=== PATIENT | female | born 2000 | race African-American/Black ===

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

== ENCOUNTER 2022-02-08 10:16 | Emergency (ER) | payer OTHER, SELFPAY ==
--- NOTE | 2022-02-08 10:20 | ED.DENTAL ---
HPI - Dental/Oral General Chief complaint: Dental/Oral Stated complaint: swollen jaw; painful tooth Time Seen by Provider: 02/08/22 10:20 Source: patient Mode of arrival: ambulatory Limitations: no limitations History of Present Illness HPI Narrative: Kailee is a 21-year-old female patient presenting to the clinic today with complaints of swollen jaw and left lower back molar dental pain x1 day. She reports no fever or chills. She rates her pain and currently a 9/10. Related Data Home Medications Medication Instructions Recorded Confirmed medroxyprogesterone 150 mg/mL 1 mg IM [id number] 06/16/20 02/08/22 intramuscular suspension Allergies Allergy/AdvReac Type Severity Reaction Status Date / Time No Known Allergies Allergy Verified 02/08/22 10:20 Review of Systems Review of Systems: Pertinent positives per HPI. Patient denies any fever, chills, rash, headache, visual changes, dizziness, cough, runny nose, sore throat, shortness of breath, chest pain, palpitations, nausea, vomiting, diarrhea, constipation, abdominal pain, or any urinary issues. PMFSH Past Medical History Medical History No acute medical problems Family History Family History Other No acute medical problems Social History Social History Smoking status: Never smoker Alcohol intake: never Gender identity (if verbalized by the patient): Female Comments At the time of my signature, I reviewed and agree with the nursing past medical, surgical, social, and family history. There is no relevant family history pertinent to the patient complaint. Exam Narrative: General: Well-developed, well nourished, in no apparent distress Head: Normocephalic, atraumatic Eyes: Pupils equally round and reactive to light bilaterally, EOM intact, sclera and conjunctive clear, no discharge, lids normal Ears: TMs intact and clear, ear canals clear, no drainage, grossly hearing normal. Nose: Nares patent, no discharge, no inflammation, no sinus tenderness. Mouth: Oropharynx without lesions or masses, good dentition, MMM. impacted infected left 3rd molar with mild jaw swelling Neck: Supple, trachea midline, no enlargement of anterior or posterior cervical nodes, no thyroid masses or goiter palpable. Cardio: Regular rate and rhythm, s1 and s2 normal, no murmur appreciated. Resp: Clear to auscultation bilaterally anteriorly and posteriorly, no rhonchi, rales, wheezing or rubs Course Course Emergency Course: Portions of this record may have been created with voice recognition software. Level of Care: Express Care Visit Vital Signs Vital signs: Vital Signs Temperature 36.4 C L 02/08/22 10:28 Pulse Rate 98 02/08/22 10:28 Respiratory Rate 16 02/08/22 10:28 Blood Pressure 143/75 H 02/08/22 10:28 Pulse Oximetry 100 02/08/22 10:28 Oxygen Delivery Room Air 02/08/22 10:28 Temperature 36.4 C L 02/08/22 10:28 Pulse Rate 98 02/08/22 10:28 Respiratory Rate 16 02/08/22 10:28 Blood Pressure 143/75 H 02/08/22 10:28 Pulse Oximetry 100 02/08/22 10:28 Oxygen Delivery Room Air 02/08/22 10:28 Vital signs reviewed MDM - Dental/Oral MDM Narrative Medical decision making narrative: At the time of visit patient resting comfortably on the exam table. She rates her pain a 9/10. Toradol 60 mg IM given in the clinic for pain. She has an impacted 3rd left lower molar that appears to be infected. Prescription for Augmentin and ibuprofen was sent to pharmacy. Supportive measures were discussed with the patient she voiced understanding of discharge instructions Discharge Plan Discharge Clinical Impression: Impacted third molar tooth, Dental infection Patient Disposition: Home, Self-Care Condition: Stable Instructions: Antibiotic Fo
[2022-02-08 10:28] VITALS: BP 143/75; PULSE 98; RESP 16; TEMP 36.4; O2SAT 100
[2022-02-08] MEDS: KETOROLAC (*BKC) 60 MG/2 ML VIAL IM (10:49)
== END 2022-02-08 11:10 | disposition home or self-care (01) ==
PROVIDERS: Emergency Provider Nurse Practitioner Family
DX: K01.1 Impacted teeth (principal); K04.7 Periapical abscess without sinus
CPT/HCPCS: 96372; 99213; G0463; J1885

== ENCOUNTER 2022-05-30 15:02 | Emergency (ER) | payer OTHER, SELFPAY ==
[2022-05-30 15:10] VITALS: BP 126/74; PULSE 98; RESP 18; TEMP 36.8; O2SAT 100
--- NOTE | 2022-05-30 15:19 | ED.DENTAL ---
HPI - Dental/Oral General Chief complaint: Dental/Oral Stated complaint: Dental Pain Time Seen by Provider: 05/30/22 15:19 Source: patient Mode of arrival: ambulatory Limitations: no limitations History of Present Illness HPI Narrative: 21-year-old female presents with complaint of left lower dental pain for the past several days. Reports history of impacted wisdom tooth. Has taken amoxicillin in the past for the pain and has helped. States that she has an appointment August 03 with a dentist to have the tooth removed. Afebrile. No significant facial swelling noted. All systems reviewed and negative except as noted above. Related Data Allergies Allergy/AdvReac Type Severity Reaction Status Date / Time No Known Allergies Allergy Verified 02/08/22 10:20 Review of Systems Review of Systems: CONSTITUTIONAL: Denies fever, chills, or sweats. EYES: Denies visual changes, redness, or discharge. ENT: Denies rhinorrhea, congestion, sore throat, or otalgia. Reports left lower dental pain. CARDIOVASCULAR: Denies chest pain, palpitations, or edema. RESPIRATORY: Denies cough or dyspnea. GASTROINTESTINAL: Denies abdominal pain, nausea, vomiting, or diarrhea. GENITOURINARY: Denies dysuria or hematuria. SKIN: Denies rash or itching. MUSCULOSKELETAL: Denies back pain, joint pain, or myalgia. NEUROLOGIC: Denies headache, numbness, or weakness. PSYCHIATRIC: Denies anxiety or depression. All other systems reviewed are negative, except as documented in HPI. PMFSH Past Medical History Medical History No acute medical problems Family History Family History Other No acute medical problems Social History Social History Smoking status: Never smoker Alcohol intake: never Gender identity (if verbalized by the patient): Female Comments At time of signature, agree with nursing past medical, surgical, social and family history. There is no relevant family history pertinent to the presenting complaint. Exam Narrative: GENERAL: This is a well-nourished, well-developed patient, in no apparent distress. HEAD: normocephalic, atraumatic. EYES: PERRL. Sclera clear/white. Vision is grossly intact. EARS: External ears normal NOSE: External nose normal MOUTH: tenderness on palpation of L lower 3rd molar. mild swelling noted. no erythema or fluctuance concerning for abscess. NECK: Neck supple, non-tender without lymphadenopathy, masses or thyromegaly. CARDIOVASCULAR: Regular rate and rhythm without murmurs, gallops, or rubs. RESPIRATORY: Clear to auscultation. Breath sounds equal bilaterally. No wheezes, rales, or rhonchi. SKIN: warm, Dry, intact with no suspicious lesions or rash, good texture and turgor. NEURO: awake, alert, and oriented to person, place and time. There were no obvious focal neurologic abnormalities. EXTREMITIES: No joint tenderness, effusion, or edema noted. Course Course Level of Care: Express Care Visit Vital Signs Vital signs: Vital Signs Temperature 36.8 C 05/30/22 15:10 Pulse Rate 98 05/30/22 15:10 Respiratory Rate 18 05/30/22 15:10 Blood Pressure 126/74 05/30/22 15:10 Pulse Oximetry 100 05/30/22 15:10 Oxygen Delivery Room Air 05/30/22 15:10 Temperature 36.8 C 05/30/22 15:10 Pulse Rate 98 05/30/22 15:10 Respiratory Rate 18 05/30/22 15:10 Blood Pressure 126/74 05/30/22 15:10 Pulse Oximetry 100 05/30/22 15:10 Oxygen Delivery Room Air 05/30/22 15:10 Reviewed MDM - Dental/Oral MDM Narrative Medical decision making narrative: Patient is aware of diagnosis, understands and agrees to treatment plan. Anticipatory guidance given. Patient agrees to follow-up as directed and is aware of reasons to seek care at the emergency department. Portions of this record may have bee
== END 2022-05-30 15:28 | disposition home or self-care (01) ==
PROVIDERS: Emergency Provider Nurse Practitioner Family; PCP Physician Assistant
DX: K08.89 Other specified disorders of teeth and supporting structures (principal)
CPT/HCPCS: 99213; G0463

== ENCOUNTER 2022-08-20 10:17 | Emergency (ER) | payer OTHER, SELFPAY ==
[2022-08-20 10:29] VITALS: BP 134/80; PULSE 99; RESP 16; TEMP 36.5; O2SAT 99
--- NOTE | 2022-08-20 10:47 | ED.DENTAL ---
HPI - Dental/Oral General Chief complaint: Dental/Oral Stated complaint: tooth pain left side Time Seen by Provider: 08/20/22 10:32 Source: patient and RN notes reviewed Mode of arrival: ambulatory Limitations: no limitations History of Present Illness HPI Narrative: Patient presents today complaining of pain to the socket of her left upper wisdom tooth. She had it removed 5 days ago by an oral surgeon. She started experiencing some sharp pain 3 days ago feeling like it is rubbing the inside of her cheek when she chews or lays on her left side. She currently rates her pain 08/15. She does have a prescription for [place] that she has been using as well as swishing with chlorhexidine. States she did not think of calling her oral surgeon for this discomfort. Related Data Home Medications Medication Instructions Recorded Confirmed chlorhexidine gluconate 0.12 % 15 ml PO BID 08/20/22 08/20/22 mouthwash hydrocodone 5 mg-acetaminophen 325 1 tablet PO Q4-5H PRN Pain 08/20/22 08/20/22 mg tablet medroxyprogesterone 150 mg/mL 150 mg IM [id number] 08/20/22 08/20/22 intramuscular syringe Allergies Allergy/AdvReac Type Severity Reaction Status Date / Time No Known Allergies Allergy Verified 08/20/22 10:23 Review of Systems Review of Systems: CONSTITUTIONAL: Denies body aches, fever, chills, or sweats. EYES: Denies visual changes, redness, or discharge. ENT: Denies rhinorrhea, congestion, sore throat, or otalgia.+ mouth pain CARDIOVASCULAR: Denies chest pain, palpitations, or edema. RESPIRATORY: Denies cough or dyspnea. GASTROINTESTINAL: Denies abdominal pain, nausea, vomiting, or diarrhea. GENITOURINARY: Denies dysuria or hematuria. SKIN: Denies rash, itching, or wounds. MUSCULOSKELETAL: Denies back pain, joint pain, or myalgia. NEUROLOGIC: Denies headache, numbness, tingling, or weakness. PSYCH: Denies depression or anxiety. [facility] Past Medical History Medical History No acute medical problems Family History Family History Other No acute medical problems Social History Social History Smoking status: Never smoker Alcohol intake: never Gender identity (if verbalized by the patient): Female Comments At time of signature, I have reviewed and agree with nursing past medical, surgical, social and family history unless otherwise noted. Please see nursing chart for further information. There is no relevant family history pertinent to the presenting complaint Exam Narrative: GENERAL: Well-appearing, well-nourished, and in no acute distress. HEAD: Normocephalic, atraumatic. EYES: EOMI. No redness or drainage. Conjunctivae normal. ENT: Mucous membranes pink and moist. Tenderness to the socket of tooth 16. Socket is not well visualized. no sharp edges were palpated within the socket. Cheek appears normal. NECK: Normal AROM. CHEST: No respiratory distress. EXTREMITIES: Normal range of motion. No edema. SKIN: Warm, dry, no rash. Capillary refill normal. Normal skin turgor. NEURO: No focal deficits. Alert and oriented x3. Gait steady. PSYCH: Normal affect. No signs of depression or anxiety. Course Course Level of Care: Express Care Visit Vital Signs Vital signs: Vital Signs Temperature 97.7 F 08/20/22 10:29 Pulse Rate 99 08/20/22 10:29 Respiratory Rate 16 08/20/22 10:29 Blood Pressure 134/80 08/20/22 10:29 Pulse Oximetry 99 08/20/22 10:29 Oxygen Delivery Room Air 08/20/22 10:29 Temperature 97.7 F 08/20/22 10:29 Pulse Rate 99 08/20/22 10:29 Respiratory Rate 16 08/20/22 10:29 Blood Pressure 134/80 08/20/22 10:29 Pulse Oximetry 99 08/20/22 10:29 Oxygen Delivery Room Air 08/20/22 10:29 Reviewed. Pt has been instructed to follow up with her PCP regarding her elev
== END 2022-08-20 10:58 | disposition home or self-care (01) ==
PROVIDERS: Emergency Provider Nurse Practitioner; PCP Physician Assistant
DX: K08.89 Other specified disorders of teeth and supporting structures (principal)
CPT/HCPCS: 99211; G0463

== ENCOUNTER 2022-10-08 10:59 | Emergency (ER) | payer OTHER, SELFPAY ==
[2022-10-08 11:17] VITALS: BP 114/98; PULSE 103; RESP 16; TEMP 36.7; O2SAT 100
--- NOTE | 2022-10-08 11:22 | ED.SKABFB ---
HPI - Skin/Abscess/Foreign Bdy General Chief complaint: Skin/Abscess/Foreign Body Stated complaint: Wound Pain Time Seen by Provider: 10/08/22 11:22 Source: patient, RN notes reviewed and old records reviewed Mode of arrival: ambulatory Limitations: no limitations History of Present Illness HPI narrative: 22-year-old female who presents to [facility] with complaints of having naval piercing done 1 week ago with some irritation of skin around piercing from where she covered it with band-aide. She states that naval piercing is tender and she has noted some purulent drainage from around upper insertion site and redness and she states that she has noted odor from area. Patient denies any fever chills or sweats or any bodyaches. MD complaint: other (recent umbilicus piercing with some discomfort and drainage) Onset (ago): day(s) (3-4 days) Severity: moderate Treatments prior to arrival: bandages and other (cleansed with peroxide) Related Data Home Medications Medication Instructions Recorded Confirmed medroxyprogesterone 150 mg/mL 150 mg IM [id number] 08/20/22 10/08/22 intramuscular syringe Allergies Allergy/AdvReac Type Severity Reaction Status Date / Time No Known Allergies Allergy Verified 10/08/22 11:08 Review of Systems Review of Systems: CONSTITUTIONAL: Denies fever, chills, or sweats. CARDIOVASCULAR: Denies chest pain, palpitations, or edema. RESPIRATORY: Denies cough or dyspnea. GASTROINTESTINAL: Denies abdominal pain, nausea, vomiting SKIN: Reports redness, drainage discomfort, and swelling at umbilicus piercing. Reports some purulent drainage, odor from site MUSCULOSKELETAL: Denies myalgia. NEUROLOGIC: Denies headache, numbness All systems reviewed & are unremarkable except as noted in HPI and below [facility] Past Medical History Medical History (Updated 10/09/22 @ 00:00 by Sayra Ornelas) No acute medical problems Surgical History Surgical History (Updated 10/08/22 @ 11:35 by Jing Hawkins NP) [place] teeth extracted Family History Family History Other No acute medical problems Social History Social History Smoking status: Never smoker Alcohol intake: never Gender identity (if verbalized by the patient): Female Comments At time of signature, agree with nursing past medical, surgical, social and family history. There is no relevant family history pertinent to the presenting complaint Exam Narrative: GENERAL: Well-appearing, well-nourished, and in no acute distress. HEAD: Normocephalic, atraumatic. EYES: PERRLA and EOMI. ENT: Nares clear, no rhinorrhea or epistaxis. Mucous membranes moist. NECK: Supple.no lymphadenopathy CHEST: Clear to auscultation. No respiratory distress.SAO2 100% on room air HEART: Regular rate and rhythm. No murmur heard. Normal peripheral pulses. ABDOMEN: Soft, nontender, nondistended, normal active bowel sounds. EXTREMITIES: Normal range of motion. No edema. SKIN: Warm, dry. Erythema, tenderness, warmth upper insertion site of naval piercing with purulent drainage and odor, some tissue irritation from band-aide below naval, moderate discomfort, no vesicle formation or necrosis. NEURO: No focal deficits. Alert and oriented Course Course Emergency Course: Patient is aware of diagnosis, understands and agrees to treatment plan. Anticipatory guidance given. Patient agrees to follow-up as directed and is aware of reasons to seek care at the emergency department. Portions of this record may have been created with voice recognition software Level of Care: Express Care Visit Vital Signs Vital signs: Vital Signs Temperature 36.7 C 10/08/22 11:17 Pulse Rate 103 H 10/08/22 11:17 Respiratory Rate 16 10/08/22 11:17 Blood Pressure 114/98 H 10/08/22 11:17 Pulse Oximetry 100 10/08/22 11:17 Oxygen Delivery Room Air
== END 2022-10-08 11:54 | disposition home or self-care (01) ==
PROVIDERS: Emergency Provider Registered Nurse; PCP Physician Assistant
DX: S31.145A Puncture wound of abdominal wall with foreign body, periumbilic region without penetration into peritoneal cavity, initial encounter (principal); L08.9 Local infection of the skin and subcutaneous tissue, unspecified; X58.XXXA Exposure to other specified factors, initial encounter
CPT/HCPCS: 99213; G0463

== ENCOUNTER 2022-12-23 10:13 | Emergency (ER) | payer OTHER, SELFPAY ==
[2022-12-23 10:21] VITALS: BP 119/63; PULSE 96; RESP 16; TEMP 37.3; O2SAT 100
--- NOTE | 2022-12-23 10:28 | ED.GENADULT ---
HPI - General Adult General Chief complaint: Upper Respiratory Infection Stated complaint: sore throat Time Seen by Provider: 12/23/22 10:30 Source: patient, RN notes reviewed and old records reviewed Mode of arrival: ambulatory Limitations: no limitations History of Present Illness HPI narrative: 22-year-old female presents to the [facility] with complaints of a sore throat for 3-4 days. Has used throat spray as well as taken Tylenol for symptoms. Denies fevers. Denies any congestion, cough, abdominal pain, chest pain. Denies shortness of breath Talking in full sentences, maintaining on secretions Onset (ago): day(s) (3-4) Related Data Home Medications Medication Instructions Recorded Confirmed medroxyprogesterone 150 mg/mL 150 mg IM [id number] 08/20/22 12/23/22 intramuscular syringe Allergies Allergy/AdvReac Type Severity Reaction Status Date / Time No Known Allergies Allergy Verified 12/23/22 10:17 Review of Systems Review of Systems: All systems reviewed & are unremarkable except as noted in HPI and below Constitutional: Constitutional: Reports no additional constitutional complaints Eyes: Eyes: Reports no additional eye complaints ENT: Reports as per HPI and Reports sore throat Cardiovascular: Cardiovascular: Reports no additional cardiovascular complaints, Denies chest pain and Denies dyspnea Respiratory: Respiratory: Reports no additional respiratory complaints, Denies chest congestion, Denies cough and Denies dyspnea Gastrointestinal: Gastrointestinal: Reports no additional gastrointestinal complaints, Denies abdominal pain, Denies nausea and Denies vomiting Musculoskeletal: Musculoskeletal: Reports no additional musculoskeletal complaints Integumentary/Breasts: Skin/Breast: Reports system reviewed and no additional complaints, except as docu Neurologic: Reports system reviewed and no additional complaints, except as documented Psychiatric: Psychiatric: Reports no additional psychiatric complaints Allergic/Immunologic: Allergic/Immunologic: Reports no additional allergic/immunologic complaints [facility] Past Medical History Medical History No acute medical problems Surgical History Surgical History [place] teeth extracted Family History Family History Other No acute medical problems Social History Social History Smoking status: Never smoker Alcohol intake: never Gender identity (if verbalized by the patient): Female Comments At the time of my signature, I reviewed and agree with the nursing past medical, surgical, social, and family history. There is no relevant family history pertinent to the patient complaint. Exam Const: General: cooperative, healthy appearing, comfortable, no acute distress, well developed, alert and well nourished Nutritional Appearance: well nourished Orientation/consciousness: patient oriented x3 Limitations: no limitations HENMT: Head: normal to inspection Ears: hearing grossly normal bilaterally, external ears normal, TM's normal bilaterally, EAC's normal, mastoids normal and no periauricular adenopathy Face/Nose/Sinus: Normal external nose present, Normal nares present, Normal nasal mucous membranes and turbinates present, normal facial exam and face symmetric Face and sinus: normal facial exam and face symmetric Mouth: Yes Normal oral and palatal mucosa present, Yes lip normal, Yes tongue normal and Yes moist mucous membranes Throat: posterior oropharynx normal, tonsils normal, uvula midline and no uvular edema Eyes: General: appearance normal, both eyes and all related structures Alignment and Position: alignment normal Periorbital: periorbital findings normal Pupils: Equal, round and reactive pupils present EOM: EOMs intact bi
== END 2022-12-23 10:50 | disposition home or self-care (01) ==
PROVIDERS: Emergency Provider Nurse Practitioner; PCP Physician Assistant
DX: J02.9 Acute pharyngitis, unspecified (principal)
CPT/HCPCS: 87081; 87880; 99213; G0463

== ENCOUNTER 2023-12-21 11:23 | Emergency (ER) | payer OTHER, SELFPAY ==
--- NOTE | 2023-12-21 11:28 | ED_ITS ---
HPI - General Adult General Chief complaint: Skin/Abscess/Foreign Body Stated complaint: Rash/Sinus Time Seen by Provider: 12/21/23 11:41 Source: patient, RN notes reviewed and old records reviewed Mode of arrival: ambulatory Limitations: no limitations History of Present Illness HPI narrative: 23-year-old female with complaints of a rash to her face since yesterday. Also noted a runny nose and a cough that started about the same time. No trouble breathing. No chest pain. No shortness of breath. No lip or tongue swelling. Patient reports that she was playing with a dog, states that she has a history of allergy to dog dander Related Data Home Medications Medication Instructions Recorded Confirmed medroxyprogesterone 150 mg/mL 150 mg IM [id number] 08/20/22 12/21/23 intramuscular syringe Allergies Allergy/AdvReac Type Severity Reaction Status Date / Time No Known Allergies Allergy Verified 12/23/22 10:17 Review of Systems Review of Systems: All systems reviewed & are unremarkable except as noted in HPI and below Constitutional: Constitutional: Reports no additional constitutional complaints ENT: Reports system reviewed and no additional complaints, except as documented Cardiovascular: Cardiovascular: Reports no additional cardiovascular complaints, Denies chest pain and Denies dyspnea Respiratory: Respiratory: Reports no additional respiratory complaints, Denies chest congestion, Denies cough and Denies dyspnea Gastrointestinal: Gastrointestinal: Reports no additional gastrointestinal complaints, Denies abdominal pain, Denies nausea and Denies vomiting Musculoskeletal: Musculoskeletal: Reports no additional musculoskeletal complaints Integumentary/Breasts: Skin/Breast: Reports as per HPI [facility] Past Medical History Medical History No acute medical problems Surgical History Surgical History [place] teeth extracted Family History Family History Other No acute medical problems Social History Social History Smoking status: Never smoker Alcohol intake: never Gender identity (if verbalized by the patient): Female Comments At the time of my signature, I reviewed and agree with the nursing past medical, surgical, social, and family history. There is no relevant family history pertinent to the patient complaint. Exam Const: General: cooperative, healthy appearing, comfortable, no acute distress, well developed, alert and well nourished Nutritional Appearance: well nourished Orientation/consciousness: patient oriented x3 Limitations: no limitations HENMT: Head: normal to inspection Ears: hearing grossly normal bilaterally, external ears normal, TM's normal bilaterally, EAC's normal, mastoids normal and no periauricular adenopathy Face/Nose/Sinus: Normal external nose present, normal facial exam and face symmetric Face and sinus: normal facial exam and face symmetric Mouth: Yes Normal oral and palatal mucosa present, Yes lip n ormal and Yes tongue normal Throat: posterior oropharynx normal, uvula midline and no uvular edema Eyes: General: appearance normal, both eyes and all related structures Alignment and Position: alignment normal Periorbital: periorbital findings normal Pupils: Equal, round and reactive pupils present Neck: Neck: normal visual inspection, full ROM, no lymphadenopathy and no meningeal signs Chest: Chest palpation & inspection: normal inspection of the chest Resp: Effort & Inspection: normal respiratory effort and able to speak in complete sentences Auscultation: clear to auscultation bilaterally, no crackles, no rales, no rhonchi and no wheezes Cardio: Rate: regular rate Skin: General skin exam: normal color and no rashes or lesions noted Lesions: no lesions Wounds: no wounds Other: Fine raised mom's to the face. No lip or tongue swelling. rash consistent with dermatitis. Neuro: General: patient oriented x3, gait normal, tone normal, moves all extremities and no meningeal signs Cognition (Neuro): normal cognition Speech: normal speech Gait exam (Neuro): Normal gait present Extrem: General: normal to inspection, full ROM, capillary refill normal and normal gait Psych: Appearance: grossly normal and well kempt Mental Status: mental status grossly normal Speech and movement: Normal speech and movement present and Clear speech present Affect: normal affect Attitude: cooperative Course Course Level of Care: Express Care Visit Vital Signs Vital signs: Vital Signs Temperature 98.4 F 12/21/23 11:30 Pulse Rate 86 12/21/23 11:30 Respiratory Rate 18 12/21/23 11:30 Blood Pressure 138/80 12/21/23 11:30 Pulse Oximetry 100 12/21/23 11:30 Oxygen Delivery Room Air 12/21/23 11:30 Temperature 98.4 F 12/21/23 11:30 Pulse Rate 86 12/21/23 11:30 Respiratory Rate 18 12/21/23 11:30 Blood Pressure 138/80 12/21/23 11:30 Pulse Oximetry 100 12/21/23 11:30 Oxygen Delivery Room Air 12/21/23 11:30 Reviewed Medical Decision Making MDM Narrative Medical decision making narrative: Patient sitting comfortably in exam room. Nontoxic, vitals stable. Patient in no acute distress Patient presents for a rash to her face. Rash consistent with dermatitis. Patient appropriate for outpatient treatment and follow-up. Discharge instructions reviewed with patient, as well as provided in writing per nursing staff. The instructions also include specific and strict return/GO TO THE ER as well as f/u information. All questions have been answered, and the patient deny any further questions with discharge and discharge plan. Some parts of this dictation were generated by voice recognition software and may contain typographical and/or grammatical inaccuracies. Differential Diagnosis Differential Diagnosis: Dermatitis, allergic reaction Medical Records Medical records reviewed: Yes I reviewed the external patient's medical records. Vital Signs Vital Signs: Vital Signs Temperature 98.4 F 12/21/23 11:30 Pulse Rate 86 12/21/23 11:30 Respiratory Rate 18 12/21/23 11:30 Blood Pressure 138/80 12/21/23 11:30 Pulse Oximetry 100 12/21/23 11:30 Oxygen Delivery Room Air 12/21/23 11:30 Temperature 98.4 F 12/21/23 11:30 Pulse Rate 86 12/21/23 11:30 Respiratory Rate 18 12/21/23 11:30 Blood Pressure 138/80 12/21/23 11:30 Pulse Oximetry 100 12/21/23 11:30 Oxygen Delivery Room Air 12/21/23 11:30 Reviewed Lab Data Lab results reviewed: Yes I reviewed the patient's lab results. Labs: Reviewed Critical Care Time Critical Care Time Critical Care Time: No Discharge Plan Discharge Clinical Impression: Facial rash Patient Disposition: Home, Self-Care Condition: Stable Instructions: Antibiotic Form, Urticaria (ED), Dermatitis (ED) Additional Instructions: The most important part of your care is follow up with Primary care provider. Take Benadryl 25-50 mg every 8 hours for itching Take Zyrtec every day Take Pepcid 20mg daily for 7 days Take the steroids starting today, next dose will be 1st thing in the morning Avoid hot showers, Take cool showers. Hot showers will make rashes worse Apply cool compresses every 2-3 hours for 15 minutes Go to the ER for new or worsening symptoms such as shortness of breath. Patient Language: Maltese Prescriptions: New prednisone 20 mg tablet See Rx Instructions .Route .COMPLEX Qty: 9 0RF Rx Instructions: Take 40 mg daily for 3 days, 20 mg daily for 3 days No Action medroxyprogesterone 150 mg/mL syringe 150 mg IM [id number] Follow-up/Referrals: Yakov,LOU Oshea [Primary Care Provider] - 2 Weeks ([facility] ) Stand Alone Forms: Work/School Release IP Time of Disposition: 11:50
[2023-12-21 11:30] VITALS: BP 138/80; PULSE 86; RESP 18; TEMP 36.9; O2SAT 100
== END 2023-12-21 12:00 | disposition home or self-care (01) ==
PROVIDERS: Emergency Provider Nurse Practitioner; PCP Physician Assistant
DX: R21 Rash and other nonspecific skin eruption (principal)
CPT/HCPCS: 99213; G0463